=== PATIENT | male | born 2000 | race Caucasian/White ===

== ENCOUNTER 2018-02-03 19:20 | Emergency (ER) | payer OTHER ==
--- NOTE | 2018-02-03 20:59 | ED Physician Documentation ---
PD HPI UPPER EXT INJURY - Stated complaint Stated Complaint: R THUMB LAC - Chief complaint Chief Complaint: Laceration - History obtained from History obtained from: Patient - History of Present Illness Location: Right, Finger Type of injury: Crush (thumb tip got caught in metal door hinge or such at work. Pain at distal phalanx of thumb.) Where injury occurred: Work Timing - onset: How many hours ago (1), Today Timing - duration: Hours (1) Timing - details: Abrupt onset, Still present Improved by: No: Rest Worsened by: Moving, Palpating Associated symptoms: Swelling, Discolored (bruising). No: Weakness, Numbness Similar symptoms before: Has not had sx before Recently seen: Not recently seen Review of Systems Skin: reports: Laceration (s) (peeled layer of skin palmar pad of the thumb.) Musculoskeletal: denies: Neck pain, Back pain Neurologic: denies: Focal weakness, Numbness PD PAST MEDICAL HISTORY - Past Medical History Musculoskeletal: None - Present Medications Home Medications: Ambulatory Orders Medication Instructions Recorded Confirmed Ibuprofen [Motrin] 600 mg PO TID #30 tab 02/03/18 Tramadol HCl 50 mg PO Q6H PRN #15 tablet 02/03/18 - Allergies Allergies/Adverse Reactions: Allergies Allergy/AdvReac Type Severity Reaction Status Date / Time No Known Drug Allergies Allergy Verified 02/03/18 19:32 PD ED PE NORMAL - Vitals Vital signs reviewed: Yes - General General: Alert and oriented X 3, No acute distress, Well developed/nourished - Derm Derm: Normal color, Warm and dry - Extremities Extremities: Other (right thumb with swelling and bruising distal phalanx. Nailbed not disrupted. Peeled superficial/partial thickness skin flap palmar side. Some trimmed off and rest left to lay as cover. No FB. Area cleansed. IP joint not tender. Tip of thumb tender. ) - Neuro Neuro: Alert and oriented X 3, No motor deficit, No sensory deficit Results - Vitals Vitals: Vital Signs - 24 hr 02/03/18 19:31 Temperature 36.5 C Heart Rate 100 Respiratory 18 Rate Blood Pressure 154/80 H O2 Saturation 100 Oxygen O2 Source Room air - Rads (name of study) right thumb Radiology: Prelim report reviewed (transverse fracture mid portion distal phalanx. Joint is okay. ), EMP read contemporaneously PD MEDICAL DECISION MAKING - ED course Complexity details: reviewed results, considered differential, d/w patient Departure - Departure Disposition: 01 Home, Self Care Clinical Impression: Crush injury to thumb Qualifiers: Encounter type: initial encounter Laterality: right Qualified Code(s): S67.01XA - Crushing injury of right thumb, initial encounter Fracture of phalanx of thumb Qualifiers: Encounter type: initial encounter Fracture type: closed Phalanx: distal Fracture alignment: nondisplaced Laterality: right Qualified Code(s): S62.524A - Nondisplaced fracture of distal phalanx of right thumb, initial encounter for closed fracture Condition: Stable Record reviewed to determine appropriate education?: Yes Instructions: ED Fx Thumb Follow-Up: LAURA Arriaga [Provider Group] Prescriptions: Ibuprofen [Motrin] 600 mg PO TID #30 tab Tramadol HCl 50 mg PO Q6H PRN #15 tablet PRN Reason: Pain Comments: Use a splint to protect the thumb. It is okay to wash and shower the laceration. Apply some ointment to it once or twice daily. The flap there is likely not thick enough to re-heal in place but it provides a good cover for now. When it is healing up a little bit more if the skin is loose at that point then just trim it away. The thumb fracture will need protecting and get slowly better over 3-4 weeks. The initial pain of it will decrease quite a bit over the 2-3 days as the swelling goes down. Ibuprofen 2-3 times a day. Add Tylenol or tramadol if needed for pain. Limited use of the right hand for the next week until follow-up with your primary care. Forms: Activity restrictions Discharge Date/Time: 02/03/18 21:41
[2018-02-03] MEDS ORDERED: IBUPROFEN 600 MG TABLET PO STA (21:17)
[2018-02-03] MEDS ORDERED: HYDROcod/ACETAM 5/325 MG TABLET PO STA (21:17)
--- NOTE | 2018-02-03 21:17 | XRAY Report ---
Reason: thumb pain and lac s/p crush incident Procedure Date: 02/03/2018 Accession Number: [id number] / [id number] Procedure: XR - Finger(s) RT CPT Code: FULL RESULT: EXAM: RIGHT FIRST DIGIT RADIOGRAPHY EXAM DATE: 02/03/2018 08:59 PM. CLINICAL HISTORY: Thumb pain and lac s/p crush incident. COMPARISON: None. TECHNIQUE: 3 views. FINDINGS: Bones: There is a nondisplaced oblique fracture of the distal tuft of first distal phalanx. Joints: Normal. No subluxations. Soft Tissues: There is soft tissue swelling. IMPRESSION: Nondisplaced fracture distal tuft first distal phalanx. [facility]
[2018-02-03 21:40] VITALS: BP 159/84
== END 2018-02-03 21:41 | disposition home or self-care (01) ==
LOC: ED 19:20
DX: S62.524A Nondisplaced fracture of distal phalanx of right thumb, initial encounter for closed fracture (principal); W23.0XXA Caught, crushed, jammed, or pinched between moving objects, initial encounter; Y99.0 Civilian activity done for income or pay
CPT/HCPCS: 73140; 99282; 99283; A9270